=== PATIENT | female | born 1965 | race Caucasian/White ===

== ENCOUNTER 2018-10-04 10:09 | Day surgery (SDC) | payer MEDICAID ==
[2018-09-30 16:24] LABS: BASOPHILS % (AUTO) 0.7 % (0-1); EOSINOPHILS # (AUTO) 0.2 X10'3 (0-0.9); EOSINOPHILS % (AUTO) 3.1 % (0-6); LYMPHOCYTES # (AUTO) 2.1 X10'3 (1.1-4.8); LYMPHOCYTES % (AUTO) 31.7 % (21-51); MEAN CORPUSCULAR HGB CONC 33.8 g/dL (33.0-36.5); MEAN CORPUSCULAR VOLUME 94.7 FL (78-98); MEAN PLATELET VOLUME 8.2 FL (7.4-10.4); MONOCYTES # (AUTO) 0.5 X10'3 (0-0.9); MONOCYTES % (AUTO) 7.9 % (2-12); NEUTROPHILS # (AUTO) 3.7 X10'3 (1.8-7.7); NEUTROPHILS % (AUTO) 56.6 % (42-75); PRE OP HEMOGLOBIN 13.2 g/dL (12.0-16.0); PRE OP PLATELET COUNT 254 X10'3 (140-440); RED BLOOD COUNT 4.12 X10'6 (4.20-5.60); RED CELL DISTRIBUTION WIDTH 12.9 % (11.5-14.5)
[2018-09-30 16:42] LABS: PRE OP PROTIME 9.7 SECONDS (9.0-12.0)
[2018-09-30 16:45] LABS: ALBUMIN/GLOBULIN RATIO 0.8 (1.1-1.5); ALKALINE PHOSPHATASE 99 IU/L (46-116); BLOOD UREA NITROGEN 16 MG/DL (7-18); BUN/CREATININE RATIO 22.9 (6.6-38.0); CALCIUM 8.8 MG/DL (8.5-10.1); CHLORIDE 106 MMOL/L (99-107); PRE OP ALT 20 U/L (30-65); PRE OP ANION GAP 4 (8-16); PRE OP AST 16 U/L (10-37); PRE OP BILIRUB, TOTAL 0.2 MG/DL (0.0-1.0); PRE OP GLUCOSE 79 MG/DL (70-104); PRE OP POTASSIUM 3.8 MMOL/L (3.4-5.1); PRE OP SODIUM 139 MMOL/L (135-145); TOTAL CARBON DIOXIDE 28.8 MMOL/L (24-32); TOTAL PROTEIN 6.6 G/DL (6.4-8.2); eGFR 87 ML/MIN
[2018-10-04] VITALS (12 sets, daily range): BP systolic 106–147; BP diastolic 45–85
[~2018-10-04] VITALS: Ht 167.6 cm; Wt 93.0 kg
[~2018-10-04 10:09] MED LIST: ESTR1TAB19 PO; INDOCYANINE GREEN 25 MG VIAL IV ONE; MEDR2.5T7 PO; VENL75TA90 PO; cefazolin/dext.iso 2gm/100 ML IV ONE; famotidine 20mg tablet PO ONE; ringers solution, lacted 1,000 ML IV SCH
[2018-10-04] MEDS ORDERED: BUPIVAcaine/PF 2.5 mg/ml (0.25%) 30ml vial ONE ×2 (10:22→11:42)
[2018-10-04] MEDS ORDERED: LIDOcaine 1% 30ml preserv. free vial ONE ×2 (10:22→11:42)
[2018-10-04] MEDS ORDERED: sevoflurane 250ml liquid IH ONE (11:53)
[2018-10-04] MEDS ORDERED: ondansetron/PF 4mg/2ml inj ONE (11:53)
[2018-10-04] MEDS ORDERED: fentaNYL/PF 50MCG/1 ML 2ML syringe ONE ×2 (12:01→13:05)
[2018-10-04] MEDS ORDERED: midazolam 2 mg/2 ml injection ONE (12:01)
--- NOTE | 2018-10-04 13:06 | NUR ---
Received from OR via D[facility], accompanied by Anesthesiologist DR YOUNG and report given by Anesthesiologist. PT DROWSY, DENIES PAIN, ABDOMEN W/4 LAP SITES W/BANDAIDS CDI. Addendum: 10/04/18 at 1514 by Lucia Ordoñez RN Amended: Links added.
[2018-10-04] MEDS ORDERED: ringers solution, lacted 1,000 ML IV SCH (13:14)
[2018-10-04] MEDS ORDERED: morphine 4 MG/ML inj SYRINge IV PRN ×2 (13:15)
[2018-10-04] MEDS ORDERED: proCHLORperazine 10 MG/2 ml inj IV PRN (13:15)
[2018-10-04] MEDS ORDERED: meperidine/PF 25mg/ml syringe IV PRN ×3 (13:15)
[2018-10-04] MEDS ORDERED: ondansetron/PF 4mg/2ml inj IV PRN (13:15)
[2018-10-04] MEDS ORDERED: dexamethasone sod phosphate 4mg/ml inj. ONE (13:46)
[2018-10-04] MEDS ORDERED: neostigmine methylsulfate 1 MG/ML 10ml vial ONE (13:46)
[2018-10-04] MEDS ORDERED: propofol inj 20 ML IV ONE (13:46)
[2018-10-04] MEDS ORDERED: glycopyrrolate 0.2mg/ml inj ONE (13:46)
[2018-10-04] MEDS ORDERED: LIDOcaine 2% (20mg/ml) 5ml vial ONE (13:46)
[2018-10-04] MEDS ORDERED: ePHEDrine 50MG/ML INJ. ONE (13:46)
[2018-10-04] MEDS ORDERED: rocuronium 10mg/ml inj IV ONE (13:46)
[2018-10-04] MEDS ORDERED: HYDROcodone/acetaminophen 5mg/325mg tablet PO ONE (13:55)
== END 2018-10-04 14:46 | disposition home or self-care (01) ==
LOC: PAS 10:09
PROVIDERS: ATTEND Surgery
DX: K80.10 Calculus of gallbladder with chronic cholecystitis without obstruction (principal); K21.9 Gastro-esophageal reflux disease without esophagitis; F41.8 Other specified anxiety disorders; G47.00 Insomnia, unspecified; Z79.899 Other long term (current) drug therapy; Z88.2 Allergy status to sulfonamides
CPT/HCPCS: 36415; 47563; 80053; 82948; 85025; 85610; 85730; 93005; J0690; J1100; J2001; J2250; J2405; J2704; J2710; J3010; J3490; J7120; S2900; A6251; A7000

== ENCOUNTER 2020-03-28 12:37 | Day surgery (SDC) | payer MEDICAID ==
[2020-03-20 17:00] LABS: BASOPHILS % (AUTO) 0.6 % (0-1); EOSINOPHILS # (AUTO) 0.2 X10'3 (0-0.9); LYMPHOCYTES # (AUTO) 2.1 X10'3 (1.1-4.8); LYMPHOCYTES % (AUTO) 26.6 % (21-51); MEAN CORPUSCULAR HEMOGLOBIN 31.1 PG (27.0-31.0); MEAN CORPUSCULAR HGB CONC 33.1 g/dL (33.0-36.5); MEAN CORPUSCULAR VOLUME 93.8 FL (78-98); MEAN PLATELET VOLUME 7.6 FL (7.4-10.4); MONOCYTES # (AUTO) 0.5 X10'3 (0-0.9); MONOCYTES % (AUTO) 6.5 % (2-12); NEUTROPHILS % (AUTO) 64.3 % (42-75); PRE OP HEMATOCRIT 41.9 % (35.0-45.0); PRE OP HEMOGLOBIN 13.9 g/dL (12.0-16.0); PRE OP PLATELET COUNT 272 X10'3 (140-440); RED BLOOD COUNT 4.47 X10'6 (4.20-5.60); RED CELL DISTRIBUTION WIDTH 13.2 % (11.5-14.5)
[2020-03-20 17:06] LABS: CLARITY,URINE SLIGHTLY CLOUDY (Clear); COLOR,URINE YELLOW (Yellow); GLUCOSE, URINE NEGATIVE (Neg); KETONES,URINE NEGATIVE (Neg); LEUKOCYTE ESTERASE ,URINE NEGATIVE (Neg); NITRITES, URINE NEGATIVE (Neg); OCCULT BLOOD,URINE NEGATIVE (Neg); PROTEIN,URINE NEGATIVE (Neg); UROBILINOGEN,URINE 0.2 E.U/dL (0.2-1.0)
[2020-03-20 17:07] LABS: UA COLLECTION TYPE CLN CATCH MIDSTREAM
[2020-03-20 17:14] LABS: BACTERIA,URINE FEW /HPF (Neg); MUCUS STRANDS FEW /LPF (Neg); SQUAMOUS EPITHELIAL CELL,UR MODERATE /LPF (FEW)
[2020-03-20 17:15] LABS: RBC,URINE 0-2 /HPF (0-2); WBC,URINE 0-4 /HPF (0-4)
[2020-03-20 17:22] LABS: ALBUMIN 3.3 G/DL (3.4-5.0); ALBUMIN/GLOBULIN RATIO 0.8 (1.1-1.5); ALKALINE PHOSPHATASE 101 IU/L (46-116); BLOOD UREA NITROGEN 13 MG/DL (7-18); BUN/CREATININE RATIO 19.1 (6.6-38.0); CHLORIDE 103 MMOL/L (99-107); CREATININE 0.68 MG/DL (0.40-0.90); PRE OP ALT 21 U/L (30-65); PRE OP ANION GAP 7 (8-16); PRE OP AST 18 U/L (10-37); PRE OP BILIRUB, TOTAL 0.3 MG/DL (0.0-1.0); PRE OP GLUCOSE 81 MG/DL (70-104); PRE OP POTASSIUM 3.7 MMOL/L (3.4-5.1); PRE OP SODIUM 139 MMOL/L (135-145); TOTAL CARBON DIOXIDE 29.5 MMOL/L (24-32); TOTAL PROTEIN 7.4 G/DL (6.4-8.2); eGFR 89 ML/MIN
[~2020-03-28] VITALS: Ht 167.6 cm; Wt 113.4 kg
[~2020-03-28 12:37] MED LIST changes: -INDOCYANINE GREEN 25 MG VIAL IV ONE; +LORA10TA7 PO; +ceFOXitin 2GM-NS 100mL ADDvant 100 ML IV ONE; -cefazolin/dext.iso 2gm/100 ML IV ONE
[2020-03-28 12:50] VITALS: BP 141/55
[2020-03-28] MEDS ORDERED: sevoflurane 250ml liquid IH ONE (14:38)
[2020-03-28] MEDS ORDERED: fentaNYL/PF 50MCG/1 ML 2ML syringe ONE (14:40)
[2020-03-28] MEDS ORDERED: morphine 2 MG/ML inj. syringe IV PRN (14:50)
[2020-03-28] MEDS ORDERED: morphine 4 MG/ML inj SYRINge IV PRN (14:50)
[2020-03-28] MEDS ORDERED: ondansetron/PF 4mg/2ml inj IV PRN (14:50)
[2020-03-28] MEDS ORDERED: proCHLORperazine 10 MG/2 ml inj IV PRN (14:50)
[2020-03-28] MEDS ORDERED: ringers solution, lacted 1,000 ML IV SCH (14:50)
[2020-03-28] MEDS ORDERED: meperidine/PF 25mg/ml syringe IV PRN ×3 (14:50)
[2020-03-28] MEDS ORDERED: propofol inj 20 ML IV ONE (15:00)
[2020-03-28] MEDS ORDERED: dexamethasone sod phosphate 4mg/ml inj. ONE (15:00)
[2020-03-28] MEDS ORDERED: ondansetron/PF 4mg/2ml inj ONE (15:00)
[2020-03-28 15:25] VITALS: BP 144/78
--- NOTE | 2020-03-28 15:25 | NUR ---
Received from OR via BED , accompanied by Anesthesiologist DR BATEMAN and report given by Anesthesiolgist. PATIENT WAKING UP, DENIES, V/S WNL, NEUROVASCULAR CHECKS INTACT, 20G PIV LUE, SCD ON, PERIPAD WITH SCANT DRAINAGE CDI.
[2020-03-28 15:35] VITALS: BP 157/86
[2020-03-28 15:45] VITALS: BP 151/81
[2020-03-28 15:55] VITALS: BP 141/74
[2020-03-28 16:05] VITALS: BP 138/76
--- NOTE | 2020-03-28 16:05 | NUR ---
PATIENT A&OX4, DENIES PAIN, V/S WNL, NEUROVASCULAR CHECKS INTACT, 20G PIV LUE D/C WITH NO COMPLICATIONS OBSERVED, SCD OFF, FRESH LIZZY PAD GIVEN TO PATIENT. I HAVE REVIEWED D/C INSTRUCTIONS WITH PATIENT AND FAMILY AND THEY HAVE VERBALIZED UNDERSTANDING. PATIENT D/C HOME WITH FAMILY TO TRANSPORT AND ALL BELONGINGS..
== END 2020-03-28 16:05 | disposition home or self-care (01) ==
LOC: PAS 12:37
PROVIDERS: ATTEND Obstetrics & Gynecology Obstetrics
DX: N95.0 Postmenopausal bleeding (principal); N84.0 Polyp of corpus uteri; Z20.828 Contact with and (suspected) exposure to other viral communicable diseases; J45.909 Unspecified asthma, uncomplicated; I69.392 Facial weakness following cerebral infarction; F32.9 Major depressive disorder, single episode, unspecified; F41.9 Anxiety disorder, unspecified; G43.909 Migraine, unspecified, not intractable, without status migrainosus; E78.5 Hyperlipidemia, unspecified; E66.9 Obesity, unspecified; Z68.42 Body mass index [BMI] 45.0-49.9, adult; Z88.2 Allergy status to sulfonamides; Z88.1 Allergy status to other antibiotic agents; Z79.899 Other long term (current) drug therapy; Z90.49 Acquired absence of other specified parts of digestive tract; Z98.890 Other specified postprocedural states; Z80.0 Family history of malignant neoplasm of digestive organs; Z80.1 Family history of malignant neoplasm of trachea, bronchus and lung; Z82.49 Family history of ischemic heart disease and other diseases of the circulatory system
CPT/HCPCS: 36415; 58558; 71046; 80053; 81001; 82948; 85025; 86885; 86900; 86901; 87635; 93005; J0694; J1100; J2175; J2405; J2704; J3010; J7030; A4355; A4618; A6258; J7120